=== PATIENT | male | born 1980 | race African-American/Black ===

== ENCOUNTER 2018-04-10 19:36 | Emergency (ER) | payer SELFPAY ==
[2018-04-10] MEDS ORDERED: KETOROLAC TROMETHAMINE INJ/PF 30 MG/1 ML SDV IV ONE (23:11)
--- NOTE | 2018-04-10 23:12 | ER Document Report ---
ED Medical Screen (RME) - General Chief Complaint: Facial Swelling Stated Complaint: POSSIBLE ABSCESS Time Seen by Provider: 04/10/18 23:06 Notes: Patient is a 37-year-old male who presents emergency department with a chief complaint of right neck swelling. 5 days ago he had a toothache and he noticed that he started to have some swelling that has progressively gotten worse. He does have significant swelling on the right side of his neck near his jaw. He rates his pain 10/10. He states that he is having a hard time swallowing. TRAVEL OUTSIDE OF THE [place] IN LAST 30 DAYS: No - Related Data Allergies/Adverse Reactions: No Known Drug Allergies Allergy (Verified 04/10/18 23:09) bug bites Allergy (Uncoded 04/10/18 23:11) Past Medical History - Social History Frequency of alcohol use: Occasional Drug Abuse: Marijuana Renal/ Medical History: Denies: Hx Peritoneal Dialysis Physical Exam - Vital signs Vitals: Temp Pulse Resp BP Pulse Ox 99.2 F 107 H 20 129/99 H 98 04/10/18 20:16 04/10/18 20:16 04/10/18 20:16 04/10/18 20:16 04/10/18 20:16 - HEENT Head: Normocephalic Neck: Other - Swelling on the right side of his neck and jaw. Course - Vital Signs Vital signs: Temp Pulse Resp BP Pulse Ox 99.2 F 107 H 20 129/99 H 98 04/10/18 20:16 04/10/18 20:16 04/10/18 20:16 04/10/18 20:16 04/10/18 20:16
[2018-04-10 23:48] LABS: ABSOLUTE BASOPHILS # (AUTO) 0.1 10^3/uL (0.0-0.2); ABSOLUTE MONOCYTES (AUTO) 1.2 10^3/uL (0.1-1.4); ABSOLUTE NEUT (AUTO) 12.2 10^3/uL (1.7-8.2); BASOPHILS % (AUTO) 0.5 % (0-2); HEMATOCRIT 43.7 % (37.9-51.0); HEMOGLOBIN 15.3 g/dL (13.5-17.0); LYMPHOCYTES % (AUTO) 6.9 % (13-45); MEAN CORPUSCULAR HEMOGLOBIN 32.2 pg (27.0-33.4); MEAN CORPUSCULAR HGB CONC 34.9 g/dL (32.0-36.0); MEAN CORPUSCULAR VOLUME 92 fl (80-97); MONOCYTES % (AUTO) 8.2 % (3-13); PLATELET COUNT 312 10^3/uL (150-450); RED BLOOD COUNT 4.74 10^6/uL (4.35-5.55); RED CELL DISTRIBUTION WIDTH 12.8 % (11.5-14.0); SEGMENTED NEUTROPHILS % (AUTO) 84.4 % (42-78); TOTAL CELLS COUNTED % (AUTO) 100 %; WHITE BLOOD COUNT 14.4 10^3/uL (4.0-10.5)
[2018-04-10 23:53] LABS: ALANINE AMINOTRANSFERASE 25 U/L (21-72); ALBUMIN 5.1 g/dL (3.5-5.0); ALKALINE PHOSPHATASE 84 U/L (38-126); ANION GAP 19 (5-19); ASPARTATE AMINO TRANSFERASE 19 U/L (17-59); BILIRUBIN,DIRECT 0.5 mg/dL (0.0-0.4); BLOOD UREA NITROGEN 11 mg/dL (7-20); CALCIUM 10.7 mg/dL (8.4-10.2); CARBON DIOXIDE 22 mmol/L (22-30); CHLORIDE 101 mmol/L (98-107); GLUCOSE 85 mg/dL (75-110); POTASSIUM 4.2 mmol/L (3.6-5.0); SODIUM 141.9 mmol/L (137-145); TOTAL PROTEIN 9.3 g/dL (6.3-8.2)
[2018-04-11] MEDS ORDERED: ONDANSETRON HCL INJ/PF 4 MG/2 ML SDV IV ONE (00:05)
[2018-04-11 00:59] VITALS: BP 128/88
--- NOTE | 2018-04-11 01:26 | RADIOLOGY REPORT (SQ) ---
EXAM DESCRIPTION: CT NECK CHEST WITHOUT IV CONTRAST COMPLETED DATE/TME: 04/10/2018 23:12 CLINICAL HISTORY: 37 years Male eval abscess to R jaw COMPARISON: None. TECHNIQUE: Contiguous axial images obtained through the neck without IV contrast. Reformatted images obtained. This exam was performed according to our department optimization program which includes automated exposure control, adjustment of the mA and/or kv according to patient size and/or use of iterative reconstruction technique. FINDINGS: Study is limited without use of intravenous contrast. The parotid glands and submandibular glands appear within normal limits. Epiglottis and vocal cords are unremarkable. Unenhanced thyroid appears within normal limits. There is extensive dental disease. There is apical lucency surrounding the right mandibular central incisor as well as decay involving molars bilaterally with a small amount of surrounding lucency particularly on the left. Apical lucencies are also present along the maxillary bicuspid and premolars on the left and lateral incisor and bicuspid on the right. There is asymmetric soft tissue and low-attenuation in the floor of the mouth on the right which May reflect phlegmon or developing abscess. No fluid or significant mucosal thickening in the visualized paranasal sinuses. Reactive adenopathy. IMPRESSION: Extensive dental disease which may be the cause of the patient's soft tissue swelling and inflammatory changes Submental and submandibular adenopathy as well as jugular digastric adenopathy this is worse on the right with there is asymmetric soft tissue in the floor the mouth and submandibular region concerning for cellulitis and/or phlegmon or developing abscess. Study is significantly limited without use of intravenous contrast.
--- NOTE | 2018-04-11 01:40 | ER Document Report ---
ED Head/Face/Scalp Injury - General Chief Complaint: Facial Swelling Stated Complaint: POSSIBLE ABSCESS Time Seen by Provider: 04/11/18 01:40 Mode of Arrival: Ambulatory Information source: Patient Notes: HISTORY OF PRESENT ILLNESS: Patient is a 37-year-old male with no significant past medical history who presents with pain and swelling to the right side of the jaw. Location: Right lower jaw Onset: Sudden Provocation: Chewing, opening and closing the mouth Quality: Throbbing and pain Radiation: None Severity: Moderate to severe Timing: Constant Injury: None REVIEW OF SYSTEMS: CONSTITUTIONAL : Denies fever or chills, no sweats. Denies recent illness. EENT: Positive for jaw/mouth pain and swelling, mild facial swelling. Denies eye, ear, or throat symptoms. Denies nasal or sinus congestion. CARDIOVASCULAR: Denies chest pain. RESPIRATORY: Denies cough, cold, or chest congestion. Denies shortness of breath, difficulty breathing, or wheezing. GASTROINTESTINAL: Denies abdominal pain. Denies nausea, vomiting, or diarrhea. Denies constipation. GENITOURINARY: Denies difficulty urinating, painful urination, burning, frequency, or blood in urine. MUSCULOSKELETAL: Denies neck or back pain or joint pain or swelling. SKIN: Denies rash or skin lesions. HEMATOLOGIC : Denies easy bruising or bleeding. LYMPHATIC: Denies swollen, enlarged glands. NEUROLOGICAL: Denies altered mental status or loss of consciousness. Denies headache. Denies weakness or paralysis or loss of use of either side. Denies problems with gait or speech. Denies sensory or motor loss. PSYCHIATRIC: Denies anxiety or stress or depression. All other systems reviewed and negative. PHYSICAL EXAMINATION: GENERAL: Well-appearing, well-nourished and in no acute distress. HEAD: Atraumatic, normocephalic. No scalp deformity, depression, or crepitance. EYES: Pupils are 3 mm and equal/round/reactive to light, extraocular movements intact, sclera anicteric, conjunctiva are normal. ENT: Moderate edema to the right side of the lower jaw, no periorbital edema. Diffusely poor dentition, no swelling or bleeding from the gingiva, no drainage. Nares patent bilaterally, oropharynx clear without exudates or palatal petechia. Moist mucous membranes. No tonsil hypertrophy. NECK: Normal range of motion, supple without lymphadenopathy. LUNGS: Breath sounds present, equal, and clear to auscultation bilaterally. No wheezes, rales, or rhonchi. HEART: Regular rate and rhythm without murmurs, rubs, or gallops. 2+ peripheral pulses. Normal capillary refill. ABDOMEN: Soft, nontender, nondistended. Normoactive bowel sounds. No guarding, no rebound. No masses appreciated. BACK: Normal contour, no midline tenderness. Rectal exam deferred. GENITAL: Deferred. EXTREMITIES: Normal range of motion, no pitting or edema. No cyanosis. NEUROLOGICAL: No focal neurological deficits. Moves all extremities spontaneously and on command. PSYCH: Normal mood, normal affect. No suicidal thoughts/ideations. No homocidal thoughts/ideations. No hallucinations. SKIN: Warm, dry, normal turgor, no rashes or lesions noted. ASSESSMENT AND PLAN: This patient is a 37-year-old male who presents with likely periapical abscess versus phlegmon of the right side of the face. CT scan is negative for acute abscess formation. 1. Will obtain blood work and give IV Unasyn along with morphine for pain cont rol. 2. Will reassess and likely discharge. TRAVEL OUTSIDE OF THE [place] IN LAST 30 DAYS: No - Related Data Allergies/Adverse Reactions: No Known Drug Allergies Allergy (Verified 04/10/18 23:09) bug bites Allergy (Uncoded 04/10/18 23:11) Past Medical History - General Information source: Patient - Social History Smoking Status: Current Every Day Smoker Chew tobacco use (# tins/day): No Frequency of alcohol use: Occasional Drug Abuse: Marijuana Lives with: Family Family History: Reviewed & Not Pertinent Patient has suicidal ideation: No Patient has homicidal ideation: No - Medical History Medical History: Negative - Past Medical History Cardiac Medical History: Reports: None Pulmonary Medical History: Reports: None EENT Medical History: Reports: None Neurological Medical History: Reports: None Endocrine Medical History: Reports: None Renal/ Medical History: Reports: None. Denies: Hx Peritoneal Dialysis Malignancy Medical History: Reports None GI Medical History: Reports: None Musculoskeletal Medical History: Reports None Skin Medical History: Reports None Psychiatric Medical History: Reports: None Traumatic Medical History: Reports: None Infectious Medical History: Reports: None Surgical Hx: Negative Past Surgical History: Reports: None - Immunizations Immunizations up to date: Yes Hx Diphtheria, Pertussis, Tetanus Vaccination: Yes History of Influenza Vaccine for 12/2016 - 05/2017 Season: Unknown Physical Exam - Vital signs Vitals: Temp Pulse Resp BP Pulse Ox 99.2 F 107 H 20 129/99 H 98 04/10/18 20:16 04/10/18 20:16 04/10/18 20:16 04/10/18 20:16 04/10/18 20:16 Course - Vital Signs Vital signs: Temp Pulse Resp BP Pulse Ox 98.9 F 60 20 128/88 H 100 04/11/18 00:53 04/11/18 00:53 04/11/18 00:53 04/11/18 00:53 04/11/18 00:53 - Laboratory Result Diagrams: 04/10/18 23:23 04/10/18 23:23 Laboratory results interpreted by me: 04/10/18 04/10/18 23:23 23:23 WBC 14.4 H Seg Neutrophils % 84.4 H Lymphocytes % 6.9 L Absolute Neutrophils 12.2 H Creatinine 2.17 H Est GFR ( Amer) 42 L Est GFR (Non-Af Amer) 34 L Calcium 10.7 H Direct Bilirubin 0.5 H Total Protein 9.3 H Albumin 5.1 H Discharge - Discharge Clinical Impression: Facial swelling Condition: Good Disposition: HOME, SELF-CARE Instructions: Toothache ([facility]) Additional Instructions: You have been evaluated in the Emergency Department for pain and swelling to your face. A CT scan did not show evidence of an acute abscess. While here, you was given IV antibiotics as well as pain medications and are now safe to be discharged home. Please follow-up with a dentist or an oral surgeon as soon as you can. You were provided with prescriptions for both an antibiotic and pain medication, take these as instructed. Return to the Emergency Department if you experience worsening swelling/pain, high fevers, the inability to open the mouth, chest pain, or any other concerning symptoms. Print Language: Italian
[2018-04-11] MEDS ORDERED: OXYCODONE-ACETAMINOPHEN 5-325 MG TABLET PO ONE (02:31)
[2018-04-11] MEDS ORDERED: AMPICILLIN SOD/SULBACTAM 3 GM VIAL IV ONE (02:31)
== END 2018-04-11 05:00 | disposition home or self-care (01) ==
LOC: ER 19:36
DX: R22.0 Localized swelling, mass and lump, head (principal); R68.84 Jaw pain; F17.200 Nicotine dependence, unspecified, uncomplicated; F12.10 Cannabis abuse, uncomplicated; Z91.038 Other insect allergy status
CPT/HCPCS: 99283; 96374; 96375; 36415; 87040; 85025; 87077; 80053; 70490; J0295; J1885; J2405